=== PATIENT | female | born 1995 | race Caucasian/White ===

== ENCOUNTER → 2016-10-07 | Outpatient (CLI) | payer OTHER ==
--- NOTE | 2016-10-07 16:23 | REP ---
Obstetric sonography: History: Supervision of for anatomy. Findings: Scanning through the gravid uterus demonstrates a viable single intrauterine gestation in a breech lie. motion is observed and heart rate is recorded at 147 beats per minute. An anterior grade 0 placenta is seen without evidence of previa or abruption. Amniotic fluid is subjectively normal. Closed cervical length is 4.4 cm measured transabdominally. No extrauterine abnormality is observed. No anomaly is seen. The following anatomic structures are identified and felt to be sonographically unremarkable: cranium, choroid plexus, cavum, cerebellum and posterior fossa, face and profile, lungs, four-chamber heart with left and right ventricular outflow tract views, diaphragm, left-sided stomach, abdominal wall cord insertion, three-vessel umbilical cord, urinary bladder, spine, upper and lower extremities. Normal kidneys are seen. Biometry chart: BPD 4.4 cm = 19 weeks 2 days HC 16.4 cm = 19 weeks 1 day AC 14.7 cm = 20 weeks 0 days FL 3.0 cm = 19 weeks 2 days HL 3.0 cm = 20 weeks 0 days CD 1.9 cm = 18 weeks 5 days HC/AC ratio normal 1.12. Cephalic index normal 0.74. Estimated weight 302 grams, 0 pounds 10 ounces, 61st percentile for 19 weeks 2 days. Impression: Viable single intrauterine gestation at 19 weeks 2 days by today's composite sonographic criteria. AVANI by today's sonography March 01, 2017. anatomic survey is felt to be complete. Signed by Austin Bartholomew MD 10/07/2016 04:36 P
== END ==
LOC: M SMT 10:26
PROVIDERS: ATTEND Advanced Practice Midwife
DX: Z34.82 Encounter for supervision of other normal pregnancy, second trimester (principal)